=== PATIENT | female | born 1945 | race Caucasian/White ===

== ENCOUNTER 2020-01-14 11:37 | Outpatient (REF) | payer MEDICARE, SELFPAY | END 2020-01-14 11:38 | disposition home or self-care (01) | LOC: HO.LAB 11:37 | PROVIDERS: Visit Provider Nurse Practitioner Family | DX: Z20.828 Contact with and (suspected) exposure to other viral communicable diseases (principal); Z13.9 Encounter for screening, unspecified | CPT/HCPCS: 87071; 87880; U0003 ==

== ENCOUNTER 2020-01-14 15:55 | Emergency (ER) | payer MEDICARE, SELFPAY ==
--- NOTE | 2020-01-14 11:00 | ECG_ITS ---
Test Reason : ARRHYTHMIA Blood Pressure : / mmHG Vent. 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
[2020-01-14 16:28] VITALS: BP 102/85; PULSE 132; RESP 18; TEMP 36.7; BMI 38.5
--- NOTE | 2020-01-14 17:33 | XR_ITS ---
EXAMINATION: XR CHEST CLINICAL INFORMATION: Shortness of breath. Tachycardia. COMPARISON: Chest x-ray 01/07/2018 TECHNIQUE: Frontal portable view of the chest was obtained. 5:50 PM FINDINGS: Lungs are clear. No pulmonary vascular congestion. There is no pleural effusion. The heart size is normal. The cardiac and mediastinal contours are normal. There are calcifications of the thoracic aorta. There are multilevel degenerative changes of dorsal spine. XR/XR chest 1V IMPRESSION: Unremarkable examination.
--- NOTE | 2020-01-14 17:40 | ED.GENADULT ---
HPI - General Adult General Chief complaint: Arrhythmia/Palpitations Stated complaint: TACHYCARDIA Time Seen by Provider: 01/14/20 17:08 History of Present Illness HPI narrative: 74-year-old female who presents emergency department for evaluation of tachycardia. The patient states that she developed a sore throat approximately 6 days prior. She points to the center of her neck when asked to localize with the throat pain is. She describes the pain as a constant, moderate to severe, throbbing pain which does not seem to change with swallowing. She states that the pain has improved but is still present. She denied associated symptoms such as rhinorrhea, cough, chest pain, dyspnea on exertion. She states that she does feel slightly short of breath but she believes that this is chronic. The patient's family was concerned that the patient's sore throat was caused by COVID-19 therefore the patient saw her PCP today. The patient had throat culture and COVID-19 test which she states will not be back for 7-10 days. The patient was noted to be tachycardic in the office and she had a 12 lead EKG which revealed a accelerated junctional rhythm with a rate of approximately 130 with PVCs. Given this unexplained tachycardia, the patient was referred to the emergency department for evaluation. Related Data Allergies Allergy/AdvReac Type Severity Reaction Status Date / Time Sulfa (Sulfonamide Allergy Unknown RASH Verified 01/14/20 16:35 Antibiotics) [SULFA (SULFONAMIDE ANTIBIOTICS)] influenza virus vaccine, AdvReac Unknown GET THE Verified 01/14/20 16:35 specific FLU [FLU VACCINE] Review of Systems Review of Systems: Yes all other systems are reviewed and are negative Constitutional: Constitutional: Reports as per HPI Eyes: Eyes: Reports as per HPI ENT: Reports as per HPI Cardiovascular: Cardiovascular: Reports as per HPI Respiratory: Respiratory: Reports as per HPI Gastrointestinal: Gastrointestinal: Reports as per HPI Genitourinary: Genitourinary: Reports as per HPI Musculoskeletal: Musculoskeletal: Reports as per HPI Integumentary/Breasts: Skin/Breast: Reports as per HPI Neurologic: Reports as per HPI and Reports Abnormal speech present Psychiatric: Psychiatric: Reports as per HPI Allergic/Immunologic: Allergic/Immunologic: Reports as per HPI PMFSH Past Medical History [facility] Narrative: Patient has history of hypertension, hyperlipidemia, left renal cell cancer with nephrectomy 8 years prior, pulmonary nodules status post biopsy-benign, uterine cancer with hysterectomy, patient is a former smoker, she has quit 3 years prior, she smoked 1 pack of cigarettes per day for 52 years, she occasionally drinks alcohol, she denies drug use. Social History Social History Alcohol intake: never Smoked in Last 30 Days: No Use of substances other than those prescribed or required for medical reasons: No Advance Directives: No Advance Directives Information Provided: No Physical Exam Vital Signs: Vital Signs: Last Vital Signs Temp 98.7 F 01/14/20 18:00 Pulse 122 H 01/14/20 18:46 Resp 16 01/14/20 18:00 BP 129/96 H 01/14/20 18:00 Pulse Ox 95 01/14/20 18:00 Body Mass Index 38.5 Const: General: cooperative, no acute distress, alert and awake Nutritional Appearance: overweight Orientation/consciousness: oriented to person and oriented to place Limitations: no limitations HENMT: Head: Yes normal to inspection, Yes normocephalic and Yes atraumatic Ears: external ears normal General nose exam: Normal external nose present Face and sinus: Yes normal facial exam Mouth: Normal oral and palatal mucosa present Throat: Yes posterior oropharynx normal Eyes: General: appearance normal, both eyes and all related structures Periorbital: periorbital findings normal Eyelids: Yes eyelids normal Conjunctivae: conjunctivae normal Sclerae: sclerae normal Corneas: corneas normal Pupils: Equal, round and reactive pupils present Direct Ophthalmoscopy: normal light reflex Neck: Neck: Yes normal visual inspection and Yes supple Thyroid: tender Lymphatic: no lymphadenopathy noted Chest: Chest palpation & inspection: normal inspection of the chest and normal palpation of entire chest wall Resp: Effort & Inspection: normal respiratory effort, abnormal respiratory pattern, no audible wheezes and no respiratory distress Auscultation: clear to auscultation bilaterally, no crackles, no rales, no rhonchi and no wheezes Cardio: Rate: tachycardic Rhythm: regular rhythm Heart sounds: S1 normal heart sound present, S2 normal heart sound present and no murmurs GI: Inspection: No distended Palpation (GI): Soft to palpation, nontender, no guarding and No hepatosplenomegaly present Auscultation: normal bowel sounds : General: Yes no CVA tenderness Back/Spine/Pelvis: Back: no CVA tenderness Skin: General skin exam: no rashes or lesions noted Lesions: no lesions Rashes: no rashes Wounds: no wounds Neuro: General: oriented to person and oriented to place Cranial nerves: Yes CN's II-XII intact bilaterally and Yes Equal, round and reactive pupils present Cognition (Neuro): normal cognition Speech: Abnormal speech present Motor exam (neuro): 5/5 motor strength present throughout Extrem: General: Yes normal to inspection, Yes full ROM, Yes no pedal edema and Yes no calf tenderness Psych: Appearance: grossly normal Mental Status: mental status grossly normal Speech and movement: Clear speech present Affect: normal affect Thought process: Normal thought process present Course Course Course Narrative: 74-year-old female with a history of sore throat x1 week which is improved, referred to the emergency department for evaluation of unexplained tachycardia. Physical examination did reveal tenderness with palpation over her thyroid otherwise her throat exam was unremarkable. 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 I ordered a cardiac workup on this patient as well as a TSH to evaluate for possible acute thyroiditis, COVID-19 swab and rapid strep test. I will also check a D-dimer on the patient. 2031: The patient's laboratory evaluation was unremarkable with a normal D-dimer, normal troponin, normal TSH. Patient does have a slight elevation in her transaminases but I do not think this is significant at this time. I did discuss the patient's presentation with her convertible power shovel operator, Dr. Jose Huston. He was able to review the EKG and felt that the patient had ectopic atrial tachycardia. He recommended that the patient get started on Cardizem CD 120 mg daily. She was given her 1st dose here and I wrote a prescription for a 1 month supply. The patient will follow-up with her convertible power shovel operator for re-evaluation. She was advised to return to the emergency department if her symptoms get worse or stopping the symptoms that were concerning to her. Medical Decision Making Lab Data Result diagrams: 01/14/20 18:04 01/14/20 18:04 Labs: Lab Results 12/02/20 12/02/20 12/02/20 Range/Units 18:04 18:04 18:04 WBC 10.6 (4.8-10.8) X10*3/uL RBC 4.72 (4.20-5.50) X10*6/uL Hgb 14.0 (12.0-16.0) g/dl Hct 42.6 (37-47) % MCV 90.3 (80-98) fL MCH 29.7 (27.0-33.0) pg MCHC 32.9 (31.0-35.0) g/dl RDW 13.9 (11.0-16.0) % Plt Count 317 (160-400) X10*3/uL MPV 11.3 (9.4-12.3) fL Immature Gran % (Auto) 0.2 (0.0-0.4) % Neut % (Auto) 62.1 (45-73) % Lymph % (Auto) 27.7 (20-40) % [place] % (Auto) 8.0 (2-11) % Eos % (Auto) 1.2 (0-4) % Baso % (Auto) 0.8 (0-2) % Lymph # (Auto) 2.9 (1.2-4.9) X10*3/uL [place] # (Auto) 0.8 (0.1-1.2) X10*3/uL Eos # (Auto) 0.1 (0.0-0.4) X10*3/uL Baso # (Auto) 0.1 (0.0-0.2) X10*3/uL Abs Immat Gran (auto) 0.02 (0.00-0.03) X10*3/uL Absolute Neuts (auto) 6.6 (2.0-8.3) X10*3/uL Absolute Nucleated RBC 0.000 (0.0-0.012) X10*3/uL Nucleated RBC % (auto) 0.0 (0.0-0.2) /100WBC D-Dimer < 200 NG/ML Sodium 141 (135-145) mmol/L Potassium 3.6 (3.3-5.1) mmol/l Chloride 107 (96-108) mmol/L Carbon Dioxide 20 L (22-29) mmol/L Anion Gap 18 (12-20) BUN 14 (9-16) mg/dL Creatinine 1.59 H (0.5-1.4) mg/dL Estim Creat Clear Calc 33.9 Estimated GFR 32 Random Glucose 116 H (60-115) mg/dL Calcium 9.3 (8.4-10.2) mg/dL Total Bilirubin 0.6 (0.0-1.0) mg/dL AST 37 H (5-31) U/L ALT 47 H (0-31) U/L Alkaline Phosphatase 97 (39-117) U/L Troponin I High Sens (<3.5-17.0) ng/L Total Protein 6.9 (6.5-8.0) g/dL Albumin 4.4 (3.5-5.0) g/dL Lipase 23 (8-78) U/L TSH 2.87 (0.32-4.0) mIU/mL COVID-19 ([facility]) (Negative) COVID-19 Clin Com 01/14/20 01/14/20 Range/Units 18:04 18:05 WBC (4.8-10.8) X10*3/uL RBC (4.20-5.50) X10*6/uL Hgb (12.0-16.0) g/dl Hct (37-47) % MCV (80-98) fL MCH (27.0-33.0) pg MCHC (31.0-35.0) g/dl RDW (11.0-16.0) % Plt Count (160-400) X10*3/uL MPV (9.4-12.3) fL Immature Gran % (Auto) (0.0-0.4) % Neut % (Auto) (45-73) % Lymph % (Auto) (20-40) % [place] % (Auto) (2-11) % Eos % (Auto) (0-4) % Baso % (Auto) (0-2) % Lymph # (Auto) (1.2-4.9) X10*3/uL [place] # (Auto) (0.1-1.2) X10*3/uL Eos # (Auto) (0.0-0.4) X10*3/uL Baso # (Auto) (0.0-0.2) X10*3/uL Abs Immat Gran (auto) (0.00-0.03) X10*3/uL Absolute Neuts (auto) (2.0-8.3) X10*3/uL Absolute Nucleated RBC (0.0-0.012) X10*3/uL Nucleated RBC % (auto) (0.0-0.2) /100WBC D-Dimer NG/ML Sodium (135-145) mmol/L Potassium (3.3-5.1) mmol/l Chloride (96-108) mmol/L Carbon Dioxide (22-29) mmol/L Anion Gap (12-20) BUN (9-16) mg/dL Creatinine (0.5-1.4) mg/dL Estim Creat Clear Calc Estimated GFR Random Glucose (60-115) mg/dL Calcium (8.4-10.2) mg/dL Total Bilirubin (0.0-1.0) mg/dL AST (5-31) U/L ALT (0-31) U/L Alkaline Phosphatase (39-117) U/L Troponin I High Sens 8.6 (<3.5-17.0) ng/L Total Protein (6.5-8.0) g/dL Albumin (3.5-5.0) g/dL Lipase (8-78) U/L TSH (0.32-4.0) mIU/mL COVID-19 ([facility]) Negative (Negative) COVID-19 Clin Com See Note
[2020-01-14 18:00] VITALS: BP 129/96; PULSE 119; RESP 16; TEMP 37.1; O2SAT 95
[2020-01-14 18:16] LABS: MANUAL DIFF FLAG NO
[2020-01-14 18:30] LABS: D Dimer < 200 NG/ML
[2020-01-14 18:38] LABS: Basophils Absolute Auto 0.1 X10*3/uL (0.0-0.2); Basophils Percent Auto 0.8 % (0-2); Eosinophils Absolute Auto 0.1 X10*3/uL (0.0-0.4); Eosinophils Percent Auto 1.2 % (0-4); Hematocrit 42.6 % (37-47); Imm Gran Abs Auto 0.02 X10*3/uL (0.00-0.03); Imm Gran Pct Auto 0.2 % (0.0-0.4); Lymphocytes Absolute Auto 2.9 X10*3/uL (1.2-4.9); Lymphocytes Percent Auto 27.7 % (20-40); Mean Corpuscular HGB Conc 32.9 g/dl (31.0-35.0); Mean Corpuscular Hemoglobin 29.7 pg (27.0-33.0); Mean Corpuscular Volume 90.3 fL (80-98); Mean Platelet Volume 11.3 fL (9.4-12.3); Monocytes Absolute Auto 0.8 X10*3/uL (0.1-1.2); Neutrophils Absolute Auto 6.6 X10*3/uL (2.0-8.3); Neutrophils Percent Auto 62.1 % (45-73); Platelet Count 317 X10*3/uL (160-400); Red Blood Count 4.72 X10*6/uL (4.20-5.50); Red Cell Distribution Width 13.9 % (11.0-16.0); White Blood Count 10.6 X10*3/uL (4.8-10.8)
[2020-01-14 18:46] VITALS: PULSE 122
[2020-01-14 18:46] LABS: Alanine Aminotransferase 47 U/L (0-31); Albumin Level 4.4 g/dL (3.5-5.0); Alkaline Phosphatase 97 U/L (39-117); Anion Gap 18 (12-20); Aspartate Amino Transferase 37 U/L (5-31); Bilirubin Total 0.6 mg/dL (0.0-1.0); Blood Urea Nitrogen 14 mg/dL (9-16); Calcium 9.3 mg/dL (8.4-10.2); Carbon Dioxide 20 mmol/L (22-29); Chloride 107 mmol/L (96-108); Creatinine Clr Calc Pharmacy 33.9; Estimated Glomerular Filt Rate 32; Glucose Random 116 mg/dL (60-115); Lipase 23 U/L (8-78); Potassium 3.6 mmol/l (3.3-5.1); Sodium 141 mmol/L (135-145); Total Protein 6.9 g/dL (6.5-8.0)
[2020-01-14 18:48] LABS: Troponin-I High Sensitivity 8.6 ng/L (<3.5-17.0)
[2020-01-14 19:07] LABS: TSH reflex Free T4 2.87 mIU/mL (0.32-4.0)
[2020-01-14 19:19] LABS: COVID-19 Test Negative (Negative)
[2020-01-14 20:00] VITALS: BP 138/67; PULSE 87; RESP 16; TEMP 37.1; O2SAT 98
[2020-01-14 20:45] VITALS: BP 134/68; PULSE 129
[2020-01-14] MEDS: dilTIAZem HCL CD 120 MG CAP.ER.DEG PO (20:45)
== END 2020-01-14 20:49 | disposition home or self-care (01) ==
PROVIDERS: Emergency Provider Emergency Medicine Emergency Medical Services
DX: R00.2 Palpitations (principal); R00.0 Tachycardia, unspecified; M54.2 Cervicalgia; Z20.828 Contact with and (suspected) exposure to other viral communicable diseases
CPT/HCPCS: 36415; 71045; 80053; 83690; 84443; 84484; 85025; 85379; 87071; 87635; 87880; 93005; 99283; 99285; U0003

== ENCOUNTER → 2020-02-17 14:28 | Outpatient (BNVA) | payer MEDICARE, SELFPAY | PROVIDERS: PCP Internal Medicine; Visit Provider Internal Medicine Cardiovascular Disease | DX: R00.0 Tachycardia, unspecified (principal); I10 Essential (primary) hypertension | CPT/HCPCS: 93005; 99212 ==

== ENCOUNTER → 2020-03-16 14:55 | Outpatient (REF) | payer MEDICARE, SELFPAY ==
--- NOTE | 2020-03-16 15:46 | ECG_ITS ---
Hook-up date: 2020-03-16 16:07:00 Duration: 24:03:00 Test Indications: TACHYCARDIA, UNSPEC. Medications: [id number] QRS complexes 123 Ventricular ectopics which represent <1 % of total QRS comp. 2 Supraventricular ectopics which represent <1 % of total QRS comp. * Paced QRS complexs which represent % of total QRS comp. VENTRICULAR ECTOPY 123 Isolated 9 Bigeminal Cycles 0 Couplets 0 Runs 0 Beats in Runs * Beats LONGEST at * BPM at :: -- * Beats FASTEST at * BPM at :: -- SUPRAVENTRICULAR ECTOPY 2 Isolated 0 Couplets 0 Runs 0 Beats in Runs * Beats LONGEST at * BPM at :: -- * Beats FASTEST at * BPM at :: -- HEART RATES 56 MIN at 17:27:54 2020-03-16 70 AVG 115 MAX at 11:56:27 2020-03-17 LONGEST RR 1.0960 secs at 17:27:52 2020-03-16 S-T LEVELS Channel 1 - 128 mm at 16:07:00 2020-03-16 - 128 mm at 16:07:00 2020-03-16 Channel 2 - 128 mm at 16:07:00 2020-03-16 - 128 mm at 16:07:00 2020-03-16 Channel 3 - 128 mm at 03:52:61 -- - 128 mm at 03:52:61 Basic rhythm Normal sinus rhythm No long pause or profound bradycardia Occasional Premature ventricular complexes Patient reported symptoms of dizziness correlated with NSR Referred By: Jose Huston Overread By: JOSE HUSTON MD
== END ==
LOC: HO.CARD 14:55
PROVIDERS: PCP Internal Medicine; Visit Provider Internal Medicine Cardiovascular Disease
DX: R00.0 Tachycardia, unspecified (principal)
CPT/HCPCS: 93226

== ENCOUNTER → 2020-12-31 10:52 | Outpatient (BNVA) | payer MEDICARE, SELFPAY | PROVIDERS: PCP Internal Medicine; Visit Provider Internal Medicine Cardiovascular Disease | DX: I10 Essential (primary) hypertension (principal); R00.0 Tachycardia, unspecified | CPT/HCPCS: 99212 ==

== ENCOUNTER → 2021-02-17 15:07 | Outpatient (BNVA) | payer MEDICARE, SELFPAY | PROVIDERS: PCP Internal Medicine; Referring Provider Physician Assistant Medical; Visit Provider Internal Medicine Cardiovascular Disease ==

== ENCOUNTER → 2021-03-23 11:37 | Outpatient (BNVA) | payer MEDICARE, SELFPAY | PROVIDERS: PCP Internal Medicine; Visit Provider Internal Medicine Cardiovascular Disease | DX: I10 Essential (primary) hypertension (principal) | CPT/HCPCS: 99212 ==

== ENCOUNTER 2021-03-30 09:20 | Outpatient (REF) | payer MEDICARE, SELFPAY ==
[2021-03-30 10:30] LABS: Anion Gap 13 (12-20); Blood Urea Nitrogen 13 mg/dL (9-16); Carbon Dioxide 22 mmol/L (22-29); Chloride 108 mmol/L (96-108); Estimated Glomerular Filt Rate 40; Glucose Random 138 mg/dL (60-115); Potassium 4.2 mmol/L (3.3-5.1); Sodium 139 mmol/L (135-145)
== END 2021-03-30 09:21 | disposition home or self-care (01) ==
LOC: HO.LAB 09:20
PROVIDERS: PCP Internal Medicine; Visit Provider Internal Medicine Cardiovascular Disease
DX: R00.0 Tachycardia, unspecified (principal); I10 Essential (primary) hypertension
CPT/HCPCS: 36415; 80048

== ENCOUNTER → 2021-09-29 10:45 | Outpatient (BNVA) | payer MEDICARE, SELFPAY | PROVIDERS: PCP Physician Assistant Medical; Visit Provider Internal Medicine Cardiovascular Disease | DX: R06.02 Shortness of breath (principal); R00.0 Tachycardia, unspecified; I10 Essential (primary) hypertension | CPT/HCPCS: 93005; 99212 ==

== ENCOUNTER → 2021-10-13 12:43 | Outpatient (REF) | payer MEDICARE, SELFPAY ==
--- NOTE | 2021-10-13 12:46 | CA_ITS ---
Transthoracic Echocardiogram Patient (Last, First, Middle): Mamta No H Gender: Female Date of : 1945 Age: 76 Procedure Date: 10/13/2021 Procedure Type: Transthoracic Echocardiogram Location: OP Height: 157.48 cm Weight: 99.79 kg BSA: 1.99 m2 Heart Rate: bpm BP: 136 / 78 mmHg [employer] Manager: TO Referring MD: Jose Huston MD Singing Telegram Performer: Jose Huston MD Symptoms: R06.02 - Shortness of breath Study Quality: Fair/Contrast ECG Rhythm: Sinus Conclusions: - 1. Normal LV systolic function with impaired relaxation filling pattern 2. Normal cardiac valvular Doppler 3. No gross pericardial effusion Findings Procedure Information Contrast agent, definity, is being given per protocol without apparent complications. Left Ventricle Normal left ventricular size, thickness, and systolic function. The visually estimated ejection fraction is between 55-60%. Spectral Doppler is indicative of an impaired relaxation filling pattern. E/E prime ratio is between 8 and 15 consistent with indeterminate filling pressures. Right Ventricle Normal right ventricular cavity size and systolic function. Atria The left atrium is normal in size. Interatrial shunt cannot be excluded. The right atrium was not well visualized. Aortic Valve The aortic valve structure and function is likely normal. There is no aortic valve stenosis. There is no aortic valve regurgitation. Mitral Valve There is mild anterior and posterior mitral leaflet thickening. There is trace mitral valve regurgitation. There is no mitral valve stenosis. Pulmonic Valve The pulmonic valve is likely normal. Tricuspid Valve Likely normal tricuspid valve structure and function. Tricuspid regurgitation envelope is inadequate for calculation of right ventricular systolic pressure. Great Vessels All visible segments of the aorta are normal in size. The pulmonary artery was not well visualized. Venous The inferior vena cava is normal in size. Pericardium/Pleural There is no evidence of pericardial effusion. Prior Study Comparison No significant change compared to prior study dated: 05/31/2017. Measurements 2D Linear Measurements IVSd: 1.04 0.6-0.9/0.6-1.0 cm LVIDd: 4.30 3.9-5.3/4.2-5.9 cm LVIDd Index: 2.16 2.4-3.2/2.2-3.1 cm/m2 LVIDs: 2.84 2.0-3.6 cm LVPWd: 1.11 0.7-1.1 cm LV Mass: 196.38 67-162/88-224 g LV Mass Index: 98.68 43-95/49-115 g/m2 LVOT Diam: 2.10 3.0+(-)1.3 cm 2D Systolic Function EF 4C: 57.00 >55% EF 2C: 61.30 >55% EF BiP: 58.60 >55% Mitral Valve MV Pk E: 0.66 MV PK A: 0.80 MV Decel Time: 260.00 E/A: 0.80 E'Lateral: 9.90 E'Medial: 5.44 E/E' Med: 12.10 E/E' Lat: 6.70 PHT: 76.00 MVA PHT: 2.89 Decel Stafford: 2.54 Aortic Valve AoV Pk Francesco: 1.13 AoV Mn Francesco: 0.77 AoV VTI: 0.24 AoV Pk Grad: 5.00 Aov Mn Grad: 3.00 NAVA Cont.VTI: 3.06 LVOT LVOT Pk Francesco: 0.94 LVOT Mn Francesco: 0.66 LVOT VTI: 0.22 LVOT Pk Grad: 4.00 LVOT Mn Grad: 2.00 LVOT Diam: 2.10 LVOT Area: 3.46 Diastolic Function MV Pk E: 0.66 MV Pk A: 0.80 E/A: 0.80 E'Medial: 5.44 E/E' Med: 12.10 E' Laterial: 9.90 E/E' Lat: 6.70 Right Ventricle TAPSE (mm): 15.10 TVS' Francesco: 6.96 Tricuspid Valve RA Press: 3.00 Great Vessels Aorta Sinus of Valsalva: 3.27 2.0-3.5 cm Ao Asc: 3.50 2.1-3.4 cm Updated in Other Vendor System with Status of Final Jose Huston MD electronically signed on 10/14/2021 3:26:00 PM with status of Final
== END ==
LOC: HO.CARD 12:43
PROVIDERS: PCP Physician Assistant Medical; Visit Provider Internal Medicine Cardiovascular Disease
DX: R06.02 Shortness of breath (principal)
CPT/HCPCS: 93306; Q9957

== ENCOUNTER → 2022-12-14 11:08 | Outpatient (AMB) | payer MEDICARE, SELFPAY ==
--- NOTE | 2022-12-14 11:21 | MHC.OFFVIS ---
Intake Vital Signs 12/14/22 11:23 Height 5 ft 2 in Weight 218 lb 4.122 oz BMI 39.9 BP 122/80 Blood Pressure Location Lt brachial Position Sitting Pulse 82 Intake Visit Reasons: pt r/s from 09/26/22 Intake Note: Follow-up with ekg feeling good Package Pick Up Required: No Allergies Sulfa (Sulfonamide Antibiotics) [SULFA (SULFONAMIDE ANTIBIOTICS)] Allergy (Unknown, Verified 03/30/21 10:00) RASH influenza virus vaccine, specific [FLU VACCINE] Adverse Reaction (Unknown, Verified 03/30/21 10:00) GET THE FLU Medication List - Last Reconciled 12/14/22 by Jose Huston MD allopurinol 300 mg PO DAILY amlodipine 2.5 mg (1/2 x 5 mg) PO DAILY 90 days aspirin 81 mg PO DAILY atenolol 50 mg PO DAILY bupropion HCl 150 mg PO BID colchicine (gout) 0.6 mg PO DAILY imipramine HCl 25 mg PO BEDTIME multivitamin 1 tab PO DAILY omeprazole 20 mg PO BID raloxifene (Evista) 60 mg PO DAILY spironolactone 25 mg PO DAILY HPI HPI Comments History of Present Illness Details Mamta comes for follow-up. She has been doing well from blood pressure perspective. She has been taking all her medications blood pressures been well controlled. She denies any significant cardiac symptoms. Continues to exertional shortness of breath which is unchanged. No orthopnea PND, leg edema. No lightheadedness, syncope. No prolonged palpitations. No exertional chest pain. COUNTS INCLUDE 234 BEDS AT THE [facility] Medical History HTN (hypertension) Sinus tachycardia Surgical History Hx of hysterectomy Social History Alcohol intake: never Review of Systems Const Denies chills, Denies fatigue, Denies fever(s), Denies frequent falls, Denies weakness, Denies weight gain and Denies weight loss ENT Denies dizziness Card Denies chest pain, Denies leg edema, Denies lightheadedness, Denies palpitations, Denies dyspnea, Denies dyspnea on exertion, Denies orthopnea and Denies other (loss of consciousness) Resp Denies cough, Denies dyspnea and Denies dyspnea on exertion GI Denies hematochezia and Denies change in stool character Musc Denies abnormal gait, Denies muscle weakness, Denies numbness, Denies radiating pain into limb and Denies tingling Neuro Denies abnormal gait, Denies dizziness, Denies frequent falls, Denies numbness, Denies tingling and Denies weakness Endo Denies fatigue and Denies palpitations Physical Exam Vital Signs: Last Vital Signs Pulse 82 12/14/22 11:23 BP 122/80 12/14/22 11:23 BMI result Body Mass Index 39.9 Const General: cooperative, comfortable, no acute distress, alert and awake Nutritional Appearance: obese Orientation/consciousness: patient oriented x3 Limitations: no limitations HEENT Head: Yes normocephalic and Yes atraumatic Neck Neck: Yes trachea midline, Yes supple and Yes no JVD Chest Chest palpation & inspection: normal inspection of the chest Resp Effort & Inspection: normal respiratory effort Auscultation: clear to auscultation bilaterally Cardio Jugular venous distension: no JVD Rate: regular rate and tachycardic Rhythm: regular rhythm Heart sounds: S1 normal heart sound present and S2 normal heart sound present Neuro General: patient oriented x3 and no focal motor deficits Extrem General: Yes no clubbing, cyanosis or edema Office Procedures EKG Details: EKG shows normal sinus rhythm with low-voltage QRS with poor R-wave progression most likely due to body habitus and lead placement [id number], Complete Assessment & Plan Assessment & Plan (1) HTN (hypertension): Code(s): I10 - Essential (primary) hypertension Plan: Hypertension which is currently well optimized advised to continue monitor blood pressure at home maintain a log. Goal blood pressure less than 130/84. She is on current good regimen. Low-salt diet was discussed. Continue the same. Annual check for renal function potassium level should be pursued while on spironolactone therapy. Her shortness of breath appears to be most likely related to deconditioning and weight. Advised to continue part and physical activity as tolerated. No signs or symptoms of heart failure. Her QRS as low-voltage on the EKG most likely due to body habitus. Her echocardiogram did not show any significant evidence of hypertrophy I will suggest infiltrative disorder. Will follow up in the clinic if need be. Thank you for allowing me to partake in the care. Coding Level of Care Code Est Pt Level 3 (64064) Diagnoses HTN (hypertension) I10 CPT Codes EKG - CPT: 16053-[id number], Complete ([id number])
[2022-12-14 11:23] VITALS: BP 122/80; PULSE 82; BMI 39.9
== END ==
PROVIDERS: PCP Physician Assistant Medical; Visit Provider Internal Medicine Cardiovascular Disease
DX: I10 Essential (primary) hypertension (principal)
CPT/HCPCS: 93010; 99213

== ENCOUNTER → 2022-12-14 11:08 | Outpatient (BNVA) | payer MEDICARE, SELFPAY | PROVIDERS: PCP Physician Assistant Medical; Visit Provider Internal Medicine Cardiovascular Disease | DX: I10 Essential (primary) hypertension (principal) | CPT/HCPCS: 93005; 99212 ==